=== PATIENT | male | born 1955 | race Caucasian/White ===

== ENCOUNTER 2018-06-07 22:04 | Emergency (ER) | payer BC ==
[~2018-06-07] VITALS: Ht 170.2 cm; Wt 57.7 kg
[2018-06-07 22:08] VITALS: Ht 170.2 cm; Wt 57.7 kg
[2018-06-07] MEDS ORDERED: DILAUDID2 MG (22:09)
[2018-06-07] MEDS ORDERED: NOVOLOG100 U/M1 (22:10)
[2018-06-07 22:43] LABS: BASOPHILS 0.6 % (0-2); EOSINOPHILS 5.1 % (0-7); HEMATOCRIT 28.3 % (42.0-54.0); HEMOGLOBIN 8.9 g/dL (13.5-17.5); IMMATURE GRANULOCYTES 0.2 % (0-5); LYMPHOCYTES 25.9 % (15-50); MCH 23.5 pg (26.0-34.0); MCHC 31.4 g/dL (31.0-37.0); MCV 74.9 fL (80.0-100.0); MEAN PLATELET VOLUME 9.4 fL (7.4-10.4); MONOCYTES 8.1 % (2-11); NEUTROPHILS 60.1 % (40-80); PLATELET COUNT 180 10x3/uL (130-400); RBC 3.78 10x6/uL (4.20-6.10); RDW 14.2 % (11.5-14.5); WBC 6.5 10x3/uL (4.8-10.8)
[2018-06-07 23:07] LABS: ANION GAP 10.1 mmol/L (8-16); BILIRUBIN - TOTAL 0.5 mg/dL (0.2-1.3); CARBON DIOXIDE 27.5 mmol/L (21.0-32.0); CREATININE - SERUM 1.5 mg/dL (0.6-1.3); MAGNESIUM - SERUM 1.7 mg/dL (1.8-2.4); POTASSIUM - SERUM 4.6 mmol/L (3.5-5.1); PROTEIN - SERUM 6.2 g/dL (6.4-8.2)
[2018-06-08 04:29] VITALS: BP 155/88
== END 2018-06-08 00:26 | disposition home or self-care (01) ==
LOC: D.ER 22:04
PROVIDERS: Family Medicine
DX: R55 Syncope and collapse (principal); G40.909 Epilepsy, unspecified, not intractable, without status epilepticus; E11.9 Type 2 diabetes mellitus without complications